=== PATIENT | female | born 1940 | race Caucasian/White ===

== ENCOUNTER 2020-05-06 11:22 | Observation (INO) | payer MEDICARE, OTHER ==
[~2020-05-06] VITALS: Ht 160 cm; Wt 50.0 kg
[~2020-05-06 11:22] MED LIST: BASAGLAR K100 UNIT/1 SC; DAILY-VITE1 EACH PO; ENAL20 PO; Enalapril Malea20 MG PO; GLYB5 PO; Glyburide5 MG PO; HYDCHL25 PO; INSULANI SC; LEVSOD100 PO; LEVSOD75 PO; LOVAZA; METF500C PO; METFORMIN HCL1000 M6 PO; OMEG1CAP30 PO; OMEP20ER PO; SPIHYD PO; Zofran Odt4 MG SL
[2020-05-06 12:31] LABS: BASOPHILS ABSOLUTE AUTO 0.02 K/mm3 (0.00-0.23); BASOPHILS PERCENT AUTO 0 % (0-2); EOSINOPHILS ABSOLUTE AUTO 0.09 K/mm3 (0.00-0.68); EOSINOPHILS PERCENT AUTO 1 % (0-6); Hematocrit 39.1 % (33.0-51.0); IMMATURE GRAN ABSOLUTE AUTO 0.02 K/mm3 (0.00-0.10); IMMATURE GRAN PERCENT AUTO 0 % (0-1); LYMPHOCYTES ABSOLUTE AUTO 1.87 K/mm3 (0.84-5.20); LYMPHOCYTES PERCENT AUTO 28 % (21-46); MONOCYTES ABSOLUTE AUTO 0.56 K/mm3 (0.16-1.47); MONOCYTES PERCENT AUTO 9 % (4-13); Mean Corpuscular HGB 31.8 pg (26.0-34.0); Mean Corpuscular HGB Conc 33.2 g/dL (31.5-36.5); Mean Corpuscular Volume 96 fL (80-100); Mean Platelet Volume 12.5 fL (9.1-12.4); NEUTROPHILS ABSOLUTE AUTO 4.05 K/mm3 (1.96-9.15); NEUTROPHILS PERCENT AUTO 61 % (41-73); Platelet Count 188 K/mm3 (150-400); RDW Coefficient Variation 12.8 % (11.7-14.2); RDW Standard Deviation 44.5 fL (35.1-46.3); Red Blood Cell Count 4.09 M/mm3 (3.80-5.20); White Blood Cell Count 6.61 K/mm3 (4.00-11.30)
[2020-05-06 12:43] LABS: Alanine Aminotransfer (ALT/SGP 28 U/L (12-78); Albumin, Blood 3.7 g/dL (3.4-5.0); Albumin/Globulin Ratio 1.1 (0.8-1.8); Alk Phos 122 U/L (50-136); Anion Gap 8 mmol/L (6-16); Aspartate Aminotrans (AST/SGOT 22 U/L (12-37); Bilirubin, Total 0.4 mg/dL (0.1-1.0); Blood Urea Nitrogen 14 mg/dL (8-24); Bun/Creatinine Ratio 11.4 (12.0-20.0); CO2, Blood 25 mmol/L (21-32); Chloride, Blood 109 mmol/L (98-108); Creatinine, Blood 1.23 mg/dL (0.40-1.00); Globulin, Blood 3.4 g/dL (2.2-4.0); Glomerular Filtration Rate 45 (60-); Glucose, Blood 159 mg/dL (70-99); Potassium, Blood 3.8 mmol/L (3.5-5.5); Sodium, Blood 142 mmol/L (136-145); Total Protein, Blood 7.1 g/dL (6.4-8.2); Troponin I <0.015 ng/mL (0.000-0.040)
--- NOTE | 2020-05-06 19:14 | NUR ---
PT ARRIVED IN THE UNIT VIA STRETCHER, REPORT RECEIVED FROM BABATUNDE TERRY. PT SBA FOR TRANSFERS. PT IS ALERT AND ORIENTED BUT FORGETFUL, VITALS HRR NSR 80'S, BP SYSTOLIC 170'S, SATS ABOVE 95% ON RA, AFEBRILE. PT DENIES CHEST PAIN UPON ARRIVAL TO UNIT PT WAS GIVEN NITRO IN THE ER. TROP TRENDS NEGATIVE AT THIS TIME WILL WATCH OVER NIGHT PER DR MATHIAS, STRESS TEST AND ECHO IN AM. NPO AT MIDNIGHT FOR POSSIBLE PROCEDURE IN AM. NO ISSUES AT THIS TIME, PT IN BED RESTING CALL LIGHTS IN REACH WILL MONITOR
[2020-05-07 04:19] LABS: BASOPHILS ABSOLUTE AUTO 0.02 K/mm3 (0.00-0.23); BASOPHILS PERCENT AUTO 0 % (0-2); EOSINOPHILS ABSOLUTE AUTO 0.15 K/mm3 (0.00-0.68); EOSINOPHILS PERCENT AUTO 2 % (0-6); Hematocrit 34.6 % (33.0-51.0); Hemoglobin 11.6 g/dL (11.5-16.0); IMMATURE GRAN ABSOLUTE AUTO 0.01 K/mm3 (0.00-0.10); IMMATURE GRAN PERCENT AUTO 0 % (0-1); LYMPHOCYTES ABSOLUTE AUTO 2.63 K/mm3 (0.84-5.20); LYMPHOCYTES PERCENT AUTO 42 % (21-46); MONOCYTES ABSOLUTE AUTO 0.52 K/mm3 (0.16-1.47); MONOCYTES PERCENT AUTO 8 % (4-13); Mean Corpuscular HGB 31.6 pg (26.0-34.0); Mean Corpuscular HGB Conc 33.5 g/dL (31.5-36.5); Mean Corpuscular Volume 94 fL (80-100); Mean Platelet Volume 12.8 fL (9.1-12.4); NEUTROPHILS ABSOLUTE AUTO 2.99 K/mm3 (1.96-9.15); NEUTROPHILS PERCENT AUTO 47 % (41-73); Platelet Count 162 K/mm3 (150-400); RDW Coefficient Variation 12.8 % (11.7-14.2); Red Blood Cell Count 3.67 M/mm3 (3.80-5.20); White Blood Cell Count 6.32 K/mm3 (4.00-11.30)
[2020-05-07 04:33] LABS: Bun/Creatinine Ratio 12.7 (12.0-20.0); Calcium, Blood 9.2 mg/dL (8.5-10.1); Creatinine, Blood 1.26 mg/dL (0.40-1.00); Potassium, Blood 3.6 mmol/L (3.5-5.5)
--- NOTE | 2020-05-07 05:34 | NUR ---
SHIFT SUMMARY PT HAD A VERY QUIET UNEVENTFUL NIGHT. PT WAS ALERT AND ORIENTED AT START OF SHIFT, BY AM PT WAS CONFUSED. PT STATED SHE WAS GOING TO GO HOME AND BEGAN TO PUT HER PANTS ON. PT WAS TOLD SHE WAS GOING IN FOR A PROCEDURE THIS AM AND PT WAS SHOCKED AND UNAWARE OF ANY PROCEDURE. PT WAS ALSO UNAWARE WHY SHE WAS AT THE HOSPITAL AND FORGOT SHE WAS HAVING CHEST PAIN PREVIOUSLY. VITALS WERE STABLE. BP WAS HYPERTENSIVE UP TO 179 SYSTOLIC BUT REMAINED AROUND 150 SYSTOLIC THROUGH MOST OF THE SHIFT. HR 50-60 BPM, PT HAD A COUPLE EPISODES OF HR IN THE 40'S FOR A COUPLE SECONDS. PT STATED HAVING CHEST PAIN EARLY IN THE NIGHT AT 5 OUT OF 10, PT STATED IT QUICKLY RESIDED DOWN TO ABOUT A 3 AND PT WAS ABLE TO GET PLENTY OF SLEEP.
--- NOTE | 2020-05-07 15:34 | NUR ---
echocardiogram complete
--- NOTE | 2020-05-07 18:25 | NUR ---
NO ACUTE EVENTS THIS SHIFT, PATIENT ALERT AND ORIENTED TO SITUATION, SELF AND FAMILY. PATIENT MAKES UNRELATED STATEMENTS DURING CONVERSTATION AT TIMES, BUT AT OTHER TIMES SEEMS ORIENTED. PATIENT HYPERTENSIVE THIS SHIFT, ORDERS FOR PRN LABETALOL GIVEN, PATIENT BP IMPROVED AND NO LABETALOL GIVEN THIS SHIFT. PATIENT INDEPENDENT IN ROOM. PATIENT COMPLAINED OF CHEST PAIN AFTER FIRST PART OF STRESS TEST TODAY, RESOLVED WITHOUT INTERVENTION. PLAN IS TO COMPLETE STRESS TEST TOMORROW, NPO AFTER MIDNIGHT.
--- NOTE | 2020-05-07 20:32 | NUR ---
ASSUMED CARE FROM DAY SHIFT RN PT WAS AWAKE AND INDEPENDENTLY IN THE BATHROOM AT THE TIME OF CHANGE OF SHIFT. PT RETURNED TO BED AND PARTICIPATED IN BEDSIDE REPORT. PT DENIED CHEST PAIN, PRESSURE AND DISCOMFORT, PT DENIED SOB. VS STABLE, PT ON RA. PT WORKED WITH RN TO STRAIGHTEN OUT LINENS AND PT WAS TUCKED INTO BED WITH A WARM BLANKET AFTER ASSESSMENT AND VITALS. PT TO BE NPO AT MIDNIGHT FOR 1 DAY STRESS TEST TOMORROW
--- NOTE | 2020-05-08 04:16 | NUR ---
SHIFT SUMMARY PT HAS BEEN SLEEPING ON AND OFF THROUGHOUT THE NIGHT. PT HAS WOKEN UP TWICE TO USE THE BATHROOM BUT SEEMED CONFUSED PER HER LOCATION STATING SHE IS AT HOME. PT REMAINED PLEASANT AND DID NOT GET ANXIOUS WHEN STAFF REORIENTED HER TO THE HOSPITAL ROOM. PT IS STILL ABLE TO TRANSFER INDEPENDENTLY BUT HAS SOME INTERMITTEN CONFUSION; THIS DID NOT BEGIN UNTIL AFTER 10PM, PRIOR TO THAT THE PT WAS A&O X4. A BED ALARM HAS BEEN USED DURING THE NIGHT FOR PATIENT SAFETY. VS STABLE, PT ON RA AND IS NOW RESTING IN BED
--- NOTE | 2020-05-08 17:13 | NUR ---
NO ACUTE EVENTS THIS SHIFT, VSS. PATIENT AMBULATING INDEPENDENTLY IN ROOM, NO DIZZINESS/WEAKNESS NOTED. PATIENT COMPLETED STRESS TEST, AFTER LUNCH COMPLAINED OF MIDLINE CHEST DISCOMFORT, WORSE ON DEEP BREATH. PRILOSEC GIVEN, RELIEF NOTED.
[2020-05-08] MEDS ORDERED: ASPI81CH PO (17:22)
--- NOTE | 2020-05-08 17:53 | NUR ---
PATIENT AND PATIENT'S DAUGHTER PROVIDED DISCHARGE INFOR REGARDING FOLLOW UP PLANS, REASONS TO RETURN TO THE HOSPITAL, AND MEDICATION INFORMATION. PATIENT AND PATIENT'S DAUGHTER VERBALIZED UNDERSTANDING. NO SIGNS OF ACUTE DISTRESS, PATIENT AMBULATED OUT WITH STAFF ACCOMPANYING TO PERSONAL VEHICLE.
== END 2020-05-08 17:46 | disposition home or self-care (01) ==
LOC: ER 11:22 → ERHOLD 11:23 → PCU 17:37
PROVIDERS: Family Medicine; Physician Assistant; ADMIT Hospitalist
DX: R07.89 Other chest pain (principal); R00.1 Bradycardia, unspecified; I35.0 Nonrheumatic aortic (valve) stenosis; I10 Essential (primary) hypertension; E03.9 Hypothyroidism, unspecified; E11.9 Type 2 diabetes mellitus without complications; Z79.4 Long term (current) use of insulin; Z88.8 Allergy status to other drugs, medicaments and biological substances
CPT/HCPCS: 36415; 71046; 78452; 80048; 80053; 82947; 83690; 84443; 84484; 85025; 93005; 93010; 93017; 93306; 99285-25; A9270; A9500; G0378; J0706; J1650; J2785

== ENCOUNTER → 2022-03-04 | Outpatient (CLI) | payer MEDICARE, OTHER ==
[~2022-03-04] MED LIST changes: +ASPI81CH PO
== END | disposition home or self-care (01) ==
LOC: LAB SHORT 14:43
DX: M79.662 Pain in left lower leg (principal)
CPT/HCPCS: 85379

== ENCOUNTER → 2022-07-21 | Outpatient (CLI) | payer MEDICARE, OTHER ==
[~2022-07-21] MED LIST changes: +Celexa20 MG PO; +EUTHYROX88 MCG PO; -LEVSOD75 PO; +PANT40 PO; +QUETIAPINE FUM10011 PO
[2022-07-21 18:25] LABS: BASOPHILS ABSOLUTE AUTO 0.02 K/mm3 (0.00-0.23); BASOPHILS PERCENT AUTO 1 % (0-2); EOSINOPHILS PERCENT AUTO 2 % (0-6); Hematocrit 26.4 % (33.0-51.0); Hemoglobin 8.3 g/dL (11.5-16.0); IMMATURE GRAN ABSOLUTE AUTO 0.01 K/mm3 (0.00-0.10); IMMATURE GRAN PERCENT AUTO 0 % (0-1); LYMPHOCYTES ABSOLUTE AUTO 1.41 K/mm3 (0.84-5.20); LYMPHOCYTES PERCENT AUTO 33 % (21-46); MONOCYTES ABSOLUTE AUTO 0.41 K/mm3 (0.16-1.47); MONOCYTES PERCENT AUTO 10 % (4-13); Mean Corpuscular HGB 28.6 pg (26.0-34.0); Mean Corpuscular HGB Conc 31.4 g/dL (31.5-36.5); Mean Corpuscular Volume 91 fL (80-100); NEUTROPHILS ABSOLUTE AUTO 2.35 K/mm3 (1.96-9.15); NEUTROPHILS PERCENT AUTO 55 % (41-73); Platelet Count 207 K/mm3 (150-400); RDW Coefficient Variation 13.7 % (11.7-14.2); RDW Standard Deviation 46.1 fL (35.1-46.3)
[2022-07-21 18:43] LABS: Alanine Aminotransfer (ALT/SGP 21 U/L (12-78); Albumin, Blood 3.4 g/dL (3.4-5.0); Albumin/Globulin Ratio 1.2 (0.8-1.8); Alk Phos 106 U/L (50-136); Anion Gap 2 mmol/L (6-16); Aspartate Aminotrans (AST/SGOT 14 U/L (12-37); Bilirubin, Total 0.3 mg/dL (0.1-1.0); Blood Urea Nitrogen 23 mg/dL (8-24); CHOL/HDL RATIO 3.6; CO2, Blood 23 mmol/L (21-32); Calcium, Blood 9.1 mg/dL (8.5-10.1); Chloride, Blood 113 mmol/L (98-108); Cholesterol 156 mg/dL (50-200); Free Thyroxine 1.05 ng/dL (0.70-1.60); Globulin, Blood 2.9 g/dL (2.2-4.0); Glucose, Blood 132 mg/dL (70-99); HDL Cholesterol 43 mg/dL (>39); LDL/HDL RATIO 2.1; Low Density Lipoprotein Chol 90 mg/dL (0-110); Potassium, Blood 4.5 mmol/L (3.5-5.5); Sodium, Blood 138 mmol/L (136-145); Total Protein, Blood 6.3 g/dL (6.4-8.2); Triglycerides 115 mg/dL (30-160); Very Low Density Lipoprot Chol 23 mg/dL (6-32)
[2022-07-21 18:49] LABS: Bun/Creatinine Ratio 14.2 (12.0-20.0); Creatinine, Blood 1.62 mg/dL (0.40-1.00); Glomerular Filtration Rate 32 (60-); Thyroid Stimulating Hormone 0.351 uIU/mL (0.360-4.800)
== END | disposition home or self-care (01) ==
LOC: LAB SHORT 11:45 → LAB 11:45
PROVIDERS: Family Medicine
DX: E03.8 Other specified hypothyroidism (principal); I10 Essential (primary) hypertension; E11.9 Type 2 diabetes mellitus without complications
CPT/HCPCS: 80053; 80061; 83036; 84439; 84443; 85025

== ENCOUNTER 2022-10-02 22:32 | Observation (INO) | payer MEDICARE, OTHER ==
[~2022-10-02] VITALS: Ht 160 cm; Wt 66.6 kg
[2022-10-02 23:16] LABS: BASOPHILS ABSOLUTE AUTO 0.01 K/mm3 (0.00-0.23); BASOPHILS PERCENT AUTO 0 % (0-2); EOSINOPHILS ABSOLUTE AUTO 0.15 K/mm3 (0.00-0.68); EOSINOPHILS PERCENT AUTO 3 % (0-6); Hematocrit 22.9 % (33.0-51.0); IMMATURE GRAN ABSOLUTE AUTO 0.02 K/mm3 (0.00-0.10); IMMATURE GRAN PERCENT AUTO 0 % (0-1); LYMPHOCYTES ABSOLUTE AUTO 1.61 K/mm3 (0.84-5.20); LYMPHOCYTES PERCENT AUTO 27 % (21-46); MONOCYTES ABSOLUTE AUTO 0.57 K/mm3 (0.16-1.47); MONOCYTES PERCENT AUTO 9 % (4-13); Mean Corpuscular HGB 25.4 pg (26.0-34.0); Mean Corpuscular HGB Conc 30.6 g/dL (31.5-36.5); Mean Corpuscular Volume 83 fL (80-100); NEUTROPHILS ABSOLUTE AUTO 3.72 K/mm3 (1.96-9.15); NEUTROPHILS PERCENT AUTO 61 % (41-73); Platelet Count 160 K/mm3 (150-400); RDW Coefficient Variation 14.6 % (11.7-14.2); RDW Standard Deviation 44.1 fL (35.1-46.3); Red Blood Cell Count 2.76 M/mm3 (3.80-5.20); White Blood Cell Count 6.08 K/mm3 (4.00-11.30)
[2022-10-02 23:35] LABS: Albumin, Blood 3.2 g/dL (3.4-5.0); Albumin/Globulin Ratio 1.2 (0.8-1.8); Bilirubin, Total 0.1 mg/dL (0.1-1.0); Bun/Creatinine Ratio 16.5 (12.0-20.0); Calcium, Blood 8.7 mg/dL (8.5-10.1); Creatinine, Blood 1.39 mg/dL (0.40-1.00); Globulin, Blood 2.7 g/dL (2.2-4.0); Potassium, Blood 4.4 mmol/L (3.5-5.5); Total Protein, Blood 5.9 g/dL (6.4-8.2)
[2022-10-03 02:24] LABS: International Normalized Ratio 1.04; Prothrombin Time Results 10.9 Sec (9.7-11.5)
[2022-10-03 06:35] VITALS: BP 166/65
[2022-10-03 06:59] LABS: BASOPHILS ABSOLUTE AUTO 0.02 K/mm3 (0.00-0.23); BASOPHILS PERCENT AUTO 0 % (0-2); EOSINOPHILS ABSOLUTE AUTO 0.15 K/mm3 (0.00-0.68); EOSINOPHILS PERCENT AUTO 3 % (0-6); Hematocrit 23.3 % (33.0-51.0); Hemoglobin 7.4 g/dL (11.5-16.0); IMMATURE GRAN ABSOLUTE AUTO 0.02 K/mm3 (0.00-0.10); IMMATURE GRAN PERCENT AUTO 0 % (0-1); LYMPHOCYTES ABSOLUTE AUTO 1.91 K/mm3 (0.84-5.20); LYMPHOCYTES PERCENT AUTO 40 % (21-46); MONOCYTES ABSOLUTE AUTO 0.44 K/mm3 (0.16-1.47); MONOCYTES PERCENT AUTO 9 % (4-13); Mean Corpuscular HGB 25.5 pg (26.0-34.0); Mean Corpuscular HGB Conc 31.8 g/dL (31.5-36.5); Mean Corpuscular Volume 80 fL (80-100); NEUTROPHILS ABSOLUTE AUTO 2.22 K/mm3 (1.96-9.15); NEUTROPHILS PERCENT AUTO 47 % (41-73); RDW Coefficient Variation 14.5 % (11.7-14.2); RDW Standard Deviation 42.7 fL (35.1-46.3); White Blood Cell Count 4.76 K/mm3 (4.00-11.30)
[2022-10-03] MEDS ORDERED: Acetaminophen650 M1 PO (07:12)
[2022-10-03] MEDS ORDERED: BISA10S PR (07:14)
[2022-10-03] MEDS ORDERED: HYDHCL25 PO (07:15)
[2022-10-03] MEDS ORDERED: MELO7.5 PO (07:16)
[2022-10-03] MEDS ORDERED: LOPE2C PO (07:16)
[2022-10-03] MEDS ORDERED: DULCOLAX400 MG/5 M (07:17)
[2022-10-03] MEDS ORDERED: ONDA4ODT MM (07:18)
[2022-10-03 07:30] LABS: Mean Platelet Volume 12.9 fL (9.1-12.4); Platelet Count 152 K/mm3 (150-400)
[2022-10-03 07:34] VITALS: BP 161/62
--- NOTE | 2022-10-03 10:35 | NUR ---
RN NOTE MS CHERRY IS ORIENTATED TO HER NAME. SHE TOLD ME IT IS THE 1900S. SHE SAID SHE WAS BORN IN [place], BUT IS MOSTLY FORGETFUL. SHE IS CALM AND HAS BEEN ABLE TO BE REDIRECTED. SHE WALKED INTO BR AND WAS CONTINENT THIS AM, GAIT BELT AND S/B ASSIST WITH SOME DIRECTION, MOSTLY STEADY WALKING. SHE SAT UP IN THE RECLINER FOR BREAKFAST. NOW IN BED FOR ECHO. BED AND CHAIR ALARMS USED. ON TELEMETRY, NO CALLS FROM [employer]. SHE HAS DENIED ANY CHEST PAIN OR PRESSURE. NO RESP COMPAINTS ON RA. SHE WAS EDUCATED RE IGNITION SOURCES AND RISK OF INJURY WHEN OXYGEN IN USE. PT DENIES SMOKING. SHE IS FORGETFUL AND UNABLE TO SHOW UNDERSTANDING. RISK ASSESSMENT CONTINUES ON HOURLY ROUNDS.
[2022-10-03 10:48] LABS: Albumin, Blood 3.1 g/dL (3.4-5.0); Albumin/Globulin Ratio 1.1 (0.8-1.8); Bilirubin, Total 0.3 mg/dL (0.1-1.0); Bun/Creatinine Ratio 15.7 (12.0-20.0); Creatinine, Blood 1.34 mg/dL (0.40-1.00); Globulin, Blood 2.9 g/dL (2.2-4.0); Potassium, Blood 4.4 mmol/L (3.5-5.5)
[2022-10-03 15:14] VITALS: BP 154/58
--- NOTE | 2022-10-03 16:31 | NUR ---
SHIFT SUMMARY MS CHERRY HAS BEEN PLEASANTLY CONFUSED TODAY, FORGETFUL AND NEEDING REDIRECTION. SHE HAS WALKED IN THE HALLS WITH PHYSICAL THERAPY, WALKED INTO THE BATHROOM SEVERAL TIMES, BEEN CONTINENT OF URINE. ATE AND DRANK WELL. DENIED ANY CHEST PAIN OR DISCOMFORT. SR ON TELE, NO CALLS FROM SCOUT OTHER THAN WHEN PT REMOVED LEADS A FEW TIMES. SHE HAS NOT USED CALL LIGHT AND HAS VERY POOR SHORT TERM MEMORY. BED AND CHAIR ALARMS USED, PT GETS UP WITHOUT CALLING. SHE RESIDES AT [facility] IN [place]. BED LOW, CALL LIGHT IN REACH.
[2022-10-03 20:44] VITALS: BP 162/67
--- NOTE | 2022-10-04 04:38 | NUR ---
SHIFT SUMMARY PT IS A&O TO SELF, UP WITH ONE TO THE BR WITH FWW, RA, VSS, NO ACUTE OVERNIGHT EVENTS, FIRE SAFETY MITIGATION EDUCATION PROVIDED CONTINUE POC
[2022-10-04 07:11] LABS: IRON BIND.CAP.(TIBC) 385 ug/dL (250-450); IRON SATURATION 3 % (15-55); IRON, SERUM 13 ug/dL (27-139); UIBC 372 ug/dL (118-369)
[2022-10-04 07:11] LABS: IRON BIND.CAP.(TIBC) 426 ug/dL (250-450); IRON SATURATION 6 % (15-55); IRON, SERUM 26 ug/dL (27-139); UIBC 400 ug/dL (118-369)
[2022-10-04 07:41] VITALS: BP 146/59
[2022-10-04 07:41] LABS: BASOPHILS ABSOLUTE AUTO 0.02 K/mm3 (0.00-0.23); BASOPHILS PERCENT AUTO 0 % (0-2); EOSINOPHILS ABSOLUTE AUTO 0.13 K/mm3 (0.00-0.68); EOSINOPHILS PERCENT AUTO 3 % (0-6); Hematocrit 23.9 % (33.0-51.0); Hemoglobin 7.5 g/dL (11.5-16.0); IMMATURE GRAN ABSOLUTE AUTO 0.01 K/mm3 (0.00-0.10); IMMATURE GRAN PERCENT AUTO 0 % (0-1); LYMPHOCYTES ABSOLUTE AUTO 1.38 K/mm3 (0.84-5.20); LYMPHOCYTES PERCENT AUTO 31 % (21-46); MONOCYTES ABSOLUTE AUTO 0.44 K/mm3 (0.16-1.47); MONOCYTES PERCENT AUTO 10 % (4-13); Mean Corpuscular HGB 25.3 pg (26.0-34.0); Mean Corpuscular HGB Conc 31.4 g/dL (31.5-36.5); Mean Corpuscular Volume 81 fL (80-100); Mean Platelet Volume 12.1 fL (9.1-12.4); NEUTROPHILS ABSOLUTE AUTO 2.51 K/mm3 (1.96-9.15); NEUTROPHILS PERCENT AUTO 56 % (41-73); Platelet Count 187 K/mm3 (150-400); RDW Coefficient Variation 14.5 % (11.7-14.2); RDW Standard Deviation 42.5 fL (35.1-46.3); Red Blood Cell Count 2.97 M/mm3 (3.80-5.20); White Blood Cell Count 4.49 K/mm3 (4.00-11.30)
[2022-10-04 08:11] LABS: FERRITIN 5 ng/mL (15-150)
[2022-10-04 08:11] LABS: FERRITIN 5 ng/mL (15-150)
[2022-10-04 08:13] LABS: Bun/Creatinine Ratio 14.3 (12.0-20.0); Calcium, Blood 9.1 mg/dL (8.5-10.1); Creatinine, Blood 1.4 mg/dL (0.40-1.00); Potassium, Blood 4.5 mmol/L (3.5-5.5)
--- NOTE | 2022-10-04 09:37 | NUR ---
LOST IV ACCESS TO RIGHT AC, SALINE LEAKING. DR. MCMANUS AT BEDSIDE, VERBAL CONSULT - OK FOR NO IV ACCESS ORDER PER DR. MCMANUS. NO CONTINUED NEED.
--- NOTE | 2022-10-04 12:45 | NUR ---
PHONE CALL TO DR. QURESHI, PT CONTINUES TO REMOVE TELEMETRY STICKERS INDEPENDENTLY. RN PLACED PHONE CALL TO DR. QURESHI, PT DENIES CHEST PAIN AND ASSOCIATED SYMPTOMS OF ACS. VERBAL CONSULT WITH DR. MCMANUS WHILE ROUNDING, DISCHARGE PLANNING IS PENDING FOR RETURN TO [facility] TOMORROW. DR. QURESHI OK TO DISCONTINUE TELE. RN CALLED TELE LESA JAMES AND UPDATED ORDERS.
--- NOTE | 2022-10-04 15:12 | NUR ---
DISCHARGE RADIOCOMMUNICATIONS TECHNICIAN CONSULTED WITH DR. QURESHI RE: DISCHARGE PLANNING. RN SPOKE TO [facility] NURSE YONG HOPPER, AND THEY ARE UNABLE TO ACCEPT PT BACK ON THE WEEKEND. RN SPOKE TO PT'S GUARDIAN KATARZYNA SHANNON. FAMILY STATES THEY ARE NOT ABLE TO TAKE PT BACK THIS EVENING BECAUSE THEY ARE CURRENTLY IN THEIR MOBILE HOME WITHOUT A SAFE PLACE FOR VALENCIA TO SLEEP, AND 3 HIGH STEPS THAT ARE UNSAFE FOR VALENCIA TO NAVIGATE. DR. QURESHI VERB UNDERSTANDING.
[2022-10-04 16:11] VITALS: BP 152/53
--- NOTE | 2022-10-04 16:22 | NUR ---
SHIFT SUMMARY VALENCIA HAS DISCHARGE ORDERS AWAITING COMPLETION. PT'S DISCHARGE PACKET IS IN HER CHART. VSS. NO ACUTE CHANGES. ROOM AIR. INCONTINENT/CONTINENT IN ATTENDS. SPENT THE SHIFT NAPPING IN HER RECLINER IN THE HALLWAY. TELEMETRY DISCONTINUED. AWAITING DISCHARGE TOMORROW, HER GUARDIAN KATARZYNA SHANNON WILL DRIVE HER TO [facility] IN [place].
[2022-10-04 17:16] VITALS: BP 164/74
[2022-10-04 17:27] VITALS: BP 164/74
[2022-10-04 19:24] VITALS: BP 167/55
--- NOTE | 2022-10-05 03:10 | NUR ---
FORWARD AIR CONTROLLER/AIR OFFICER SUMMARY BP ELEVATED, OTHERWISE VSS. WAS UP IN RECLINER IN THE HALLWAY AT SHIFT COMMENCE FOR BEHAVIORAL ISSUES. AFFECT CHEERFUL AND TALKATIVE. WAS ASSISTED TO BATHROOM AND THEN TO BED AT HS. HAS BEEN RESTING QUIETLY WITH FEW INTERUPTIONS. NO C/O CHEST PAINS. CBG AT HS WAS 142. CALL LIGHT IN REACH. SCHEDULED TO BE DISCHARGED IN THE AM. WILL CONTINUE TO MONITOR
[2022-10-05 03:20] VITALS: BP 144/57
--- NOTE | 2022-10-05 04:38 | NUR ---
NURSE NOTE RECEIVED FIRE IGNITION TEACHING RE NOT TO SMOKE WHILE ON O2 AND NOT TO SMOKE IN GENERAL EARLIER IN THE SHIFT
--- NOTE | 2022-10-05 11:19 | NUR ---
Upon receiving a referal or spiritual care, I visied he patient. She is onfused about most things but is very pleasant. She is unsure of family names and places but knows that she has a dtr. I help her identify her dtr's name. Patient knows he she has a strong Chritian based rekha and that she prays often but can't come up with the names of any churches she has attended. I provide therapeutic listening, a calming presence and prayer. Patient showed signs of being encouraged in her rekha. I will continue to remain avaiable to patient and family.
--- NOTE | 2022-10-05 11:41 | NUR ---
DISCHARGE SUMMARY PATIENT IS ALERT AND ORIENTED TO SELF AND LOCATION ONLY. PATIENT HAS NOT HAD ANY ACUTE EVENTS THIS SHIFT. PATIENT IS BEING DISCHARGED TO [facility]. PATIENTS DAUGHTER ARRIVED TO TRANSPORT PATIENT TO FACILITY. PATIENTS FAMILY AND FACILITY WERE UPDATED ON PATIENTS DISCHARGE INSTRUCTIONS. PAVITHRA LANGFORD WHEELED PATIENT OUT TO PATIENTS DAUGHTERS CAR.
== END 2022-10-05 11:45 | disposition home or self-care (01) ==
LOC: ER 22:32 → MEDS 22:33 → ENPENDDIS 10-04 15:26 → MEDS 10-05 11:45
PROVIDERS: Family Medicine; Student in an Organized Health Care Education/Training Program; ADMIT Internal Medicine
DX: R07.89 Other chest pain (principal); R79.0 Abnormal level of blood mineral; I13.0 Hypertensive heart and chronic kidney disease with heart failure and stage 1 through stage 4 chronic kidney disease, or unspecified chronic kidney disease; E11.22 Type 2 diabetes mellitus with diabetic chronic kidney disease; N18.30 Chronic kidney disease, stage 3 unspecified; I50.30 Unspecified diastolic (congestive) heart failure; D64.9 Anemia, unspecified; E03.9 Hypothyroidism, unspecified; I35.0 Nonrheumatic aortic (valve) stenosis; Z66 Do not resuscitate
CPT/HCPCS: 36415; 71045; 80048; 80053; 82607; 82728; 82746; 82947; 83540; 83550; 83880; 84443; 84484; 85025; 85610; 86850; 86900; 86901; 93005; 93010; 93306; 96372; 97116; 97161; 99285-25; A9270; G0378; J1650

== ENCOUNTER 2023-01-14 10:18 | Emergency (ER) | payer MEDICARE, OTHER ==
[~2023-01-14] VITALS: Ht 172.7 cm; Wt 79.4 kg
[~2023-01-14 10:18] MED LIST changes: +Acetaminophen650 M1 PO; +BISA10S PR; +DULCOLAX400 MG/5 M; +HYDHCL25 PO; +LOPE2C PO; +MELO7.5 PO; +ONDA4ODT MM
[2023-01-14 10:41] LABS: BASOPHILS ABSOLUTE AUTO 0.02 K/mm3 (0.00-0.23); BASOPHILS PERCENT AUTO 0 % (0-2); EOSINOPHILS PERCENT AUTO 2 % (0-6); Hematocrit 20.7 % (33.0-51.0); IMMATURE GRAN ABSOLUTE AUTO 0.03 K/mm3 (0.00-0.10); IMMATURE GRAN PERCENT AUTO 1 % (0-1); LYMPHOCYTES ABSOLUTE AUTO 1.59 K/mm3 (0.84-5.20); LYMPHOCYTES PERCENT AUTO 27 % (21-46); MONOCYTES ABSOLUTE AUTO 0.48 K/mm3 (0.16-1.47); MONOCYTES PERCENT AUTO 8 % (4-13); Mean Corpuscular HGB 21.7 pg (26.0-34.0); Mean Corpuscular Volume 75 fL (80-100); Mean Platelet Volume 11.8 fL (9.1-12.4); NEUTROPHILS ABSOLUTE AUTO 3.63 K/mm3 (1.96-9.15); NEUTROPHILS PERCENT AUTO 62 % (41-73); Platelet Count 189 K/mm3 (150-400); RDW Coefficient Variation 17.9 % (11.7-14.2); RDW Standard Deviation 48.3 fL (35.1-46.3); Red Blood Cell Count 2.76 M/mm3 (3.80-5.20); White Blood Cell Count 5.85 K/mm3 (4.00-11.30)
[2023-01-14 11:04] LABS: Magnesium, Blood 2.1 mg/dL (1.6-2.4)
[2023-01-14 11:05] LABS: Albumin, Blood 3.2 g/dL (3.4-5.0); Albumin/Globulin Ratio 1.1 (0.8-1.8); Bilirubin, Total 0.2 mg/dL (0.1-1.0); Bun/Creatinine Ratio 10.8 (12.0-20.0); Calcium, Blood 8.5 mg/dL (8.5-10.1); Creatinine, Blood 1.57 mg/dL (0.40-1.00); Globulin, Blood 2.9 g/dL (2.2-4.0); Potassium, Blood 4.5 mmol/L (3.5-5.5); Total Protein, Blood 6.1 g/dL (6.4-8.2)
[2023-01-14 16:00] VITALS: BP 170/56
== END 2023-01-14 19:20 | disposition home or self-care (01) ==
LOC: ER 10:18
PROVIDERS: Student in an Organized Health Care Education/Training Program
DX: D64.9 Anemia, unspecified (principal); Z88.8 Allergy status to other drugs, medicaments and biological substances; Z88.6 Allergy status to analgesic agent; Z79.899 Other long term (current) drug therapy; E11.9 Type 2 diabetes mellitus without complications; I10 Essential (primary) hypertension; E03.9 Hypothyroidism, unspecified
CPT/HCPCS: 36430; 71046; 80053; 82947; 83735; 84484; 85025; 86850; 86900; 86901; 86923; 93005; 93010; 96360; 96361; 99285-25; J7030; P9016

== ENCOUNTER → 2023-01-25 | Outpatient (CLI) | payer MEDICARE, OTHER ==
[2023-01-25 14:29] LABS: BASOPHILS ABSOLUTE AUTO 0.03 K/mm3 (0.00-0.23); BASOPHILS PERCENT AUTO 1 % (0-2); EOSINOPHILS ABSOLUTE AUTO 0.11 K/mm3 (0.00-0.68); EOSINOPHILS PERCENT AUTO 2 % (0-6); Hematocrit 29.1 % (33.0-51.0); Hemoglobin 8.8 g/dL (11.5-16.0); IMMATURE GRAN ABSOLUTE AUTO 0.02 K/mm3 (0.00-0.10); IMMATURE GRAN PERCENT AUTO 0 % (0-1); LYMPHOCYTES ABSOLUTE AUTO 1.72 K/mm3 (0.84-5.20); LYMPHOCYTES PERCENT AUTO 30 % (21-46); MONOCYTES ABSOLUTE AUTO 0.48 K/mm3 (0.16-1.47); MONOCYTES PERCENT AUTO 8 % (4-13); Mean Corpuscular HGB 24.2 pg (26.0-34.0); Mean Corpuscular HGB Conc 30.2 g/dL (31.5-36.5); Mean Corpuscular Volume 80 fL (80-100); NEUTROPHILS ABSOLUTE AUTO 3.37 K/mm3 (1.96-9.15); NEUTROPHILS PERCENT AUTO 59 % (41-73); Platelet Count 150 K/mm3 (150-400); RDW Coefficient Variation 20.6 % (11.7-14.2); RDW Standard Deviation 58.1 fL (35.1-46.3); Red Blood Cell Count 3.63 M/mm3 (3.80-5.20); White Blood Cell Count 5.73 K/mm3 (4.00-11.30)
== END ==
LOC: LAB 11:14 → LAB SHORT 11:14
PROVIDERS: Family Medicine
DX: D50.9 Iron deficiency anemia, unspecified (principal)
CPT/HCPCS: 82728; 83540; 83550; 85025

== ENCOUNTER → 2023-12-23 | Outpatient (CLI) | payer MEDICARE, OTHER ==
[2023-12-23 17:46] LABS: Source, Urine Clean Catch
[2023-12-23 19:01] LABS: Appearance, Urine Clear (Clear); Bilirubin, Urine Neg (Neg); Blood, Urine Neg (Neg); Color, Urine Yellow (P-Yellow); Glucose Qualitative, Urine 2+ (Neg); Ketones, Urine Neg (Neg); Leukocyte Esterase, Urine 1+ (Neg); Nitrite, Urine Pos (Neg); Protein, Urine Neg (Neg); Urobilinogen, Urine NORM (Normal)
[2023-12-23 19:50] LABS: Bacteria Mod /hpf; Red Blood Cells, Urine 0-2 /hpf (0-2); Squamous Epithelial Cells Rare /hpf (Few)
== END ==
LOC: LAB SHORT 17:44 → LAB 17:44
PROVIDERS: Family Medicine
DX: N39.0 Urinary tract infection, site not specified (principal)
CPT/HCPCS: 81001; 87077; 87086; 87186

== ENCOUNTER 2024-02-11 12:30 | Emergency (ER) | payer MEDICARE, OTHER ==
[~2024-02-11] VITALS: Ht 167.6 cm; Wt 59.0 kg
[2024-02-11 15:14] LABS: Source, Urine Clean Catch
[2024-02-11 15:17] LABS: Appearance, Urine Clear (Clear); Bilirubin, Urine Neg (Neg); Blood, Urine 1+ (Neg); Color, Urine Yellow (P-Yellow); Glucose Qualitative, Urine Neg (Neg); Ketones, Urine Neg (Neg); Leukocyte Esterase, Urine 2+ (Neg); Nitrite, Urine Neg (Neg); Protein, Urine 2+ (Neg); Specific Gravity, Urine 1.015 (1.003-1.022); Urobilinogen, Urine NORM (Normal)
[2024-02-11 15:24] LABS: White Blood Cells, Urine 50-100 /hpf (0-5)
[2024-02-11 15:25] LABS: Bacteria Many /hpf; Squamous Epithelial Cells Few /hpf (Few)
[2024-02-11] MEDS ORDERED: Cephalexin Monohydrate 250 MG/5 ML UD BTL PO ONE (15:35)
[2024-02-11 15:36] LABS: U Amphetamine Screen Not Detected; U Barbituate Screen Not Detected; U Benzodiazapine Screen Not Detected; U Buprenorphine Screen Not Detected; U Cannabinoids Screen Not Detected; U Cocaine Screen Not Detected; U Methadone Screen Not Detected; U Methamphetamine Screen Not Detected; U Opiates Screen Not Detected; U Oxycodone Screen Not Detected; U Phencyclidine Screen Not Detected
[2024-02-11] MEDS ORDERED: CEPH500 PO (16:00)
== END 2024-02-11 16:12 | disposition home or self-care (01) ==
LOC: ER 12:30
PROVIDERS: Student in an Organized Health Care Education/Training Program
DX: N39.0 Urinary tract infection, site not specified (principal); F03.90 Unspecified dementia, unspecified severity, without behavioral disturbance, psychotic disturbance, mood disturbance, and anxiety; I50.30 Unspecified diastolic (congestive) heart failure; E78.00 Pure hypercholesterolemia, unspecified; E03.9 Hypothyroidism, unspecified; I12.9 Hypertensive chronic kidney disease with stage 1 through stage 4 chronic kidney disease, or unspecified chronic kidney disease; E11.22 Type 2 diabetes mellitus with diabetic chronic kidney disease; N18.9 Chronic kidney disease, unspecified; Z79.899 Other long term (current) drug therapy; Z88.6 Allergy status to analgesic agent; Z88.8 Allergy status to other drugs, medicaments and biological substances
CPT/HCPCS: 51701; 70450; 81001; 82947; 87077; 87086; 87186; 99285-25; A9270

== ENCOUNTER → 2024-06-22 | Outpatient (CLI) | payer MEDICARE, OTHER ==
[~2024-06-22] MED LIST changes: +CEPH500 PO
[2024-06-22 16:46] LABS: Appearance, Urine Hazy (Clear); Bilirubin, Urine Neg (Neg); Blood, Urine 1+ (Neg); Glucose Qualitative, Urine Neg (Neg); Ketones, Urine Neg (Neg); Leukocyte Esterase, Urine 3+ (Neg); Nitrite, Urine Neg (Neg); Protein, Urine 2+ (Neg); Specific Gravity, Urine 1.015 (1.003-1.022); Urobilinogen, Urine NORM (Normal)
[2024-06-22 17:01] LABS: Bacteria Many /hpf; Color, Urine Pale Yellow (P-Yellow); Mucus Light (0-Heavy); Red Blood Cells, Urine Not Seen /hpf (0-2); Squamous Epithelial Cells Few /hpf (Few); White Blood Cells, Urine 50-100 /hpf (0-5)
== END ==
LOC: LAB 14:52 → LAB SHORT 14:52
PROVIDERS: Family Medicine
DX: N39.0 Urinary tract infection, site not specified (principal)
CPT/HCPCS: 81001; 87077; 87086; 87186

== ENCOUNTER 2024-06-25 13:55 | Emergency (ER) | payer MEDICARE, OTHER ==
[~2024-06-25] VITALS: Ht 162.6 cm; Wt 72.6 kg
[2024-06-25] MEDS ORDERED: Haloperidol Lactate Inj. 5 MG/ML Injection IV ONE (14:20)
[2024-06-25] MEDS ORDERED: Metoprolol Tartrate 1 MG/ML 5 ML VIAL IV PRN (14:25)
[2024-06-25 14:28] LABS: BASOPHILS ABSOLUTE AUTO 0.04 K/mm3 (0.00-0.23); BASOPHILS PERCENT AUTO 0 % (0-2); EOSINOPHILS ABSOLUTE AUTO 0.15 K/mm3 (0.00-0.68); EOSINOPHILS PERCENT AUTO 2 % (0-6); Hematocrit 35.8 % (33.0-51.0); Hemoglobin 12.5 g/dL (11.5-16.0); IMMATURE GRAN ABSOLUTE AUTO 0.03 K/mm3 (0.00-0.10); IMMATURE GRAN PERCENT AUTO 0 % (0-1); LYMPHOCYTES ABSOLUTE AUTO 2.32 K/mm3 (0.84-5.20); LYMPHOCYTES PERCENT AUTO 25 % (21-46); MONOCYTES ABSOLUTE AUTO 0.77 K/mm3 (0.16-1.47); MONOCYTES PERCENT AUTO 8 % (4-13); Mean Corpuscular HGB 33.5 pg (26.0-34.0); Mean Corpuscular HGB Conc 34.9 g/dL (31.5-36.5); Mean Corpuscular Volume 96 fL (80-100); Mean Platelet Volume 10.9 fL (9.1-12.4); NEUTROPHILS ABSOLUTE AUTO 6.14 K/mm3 (1.96-9.15); NEUTROPHILS PERCENT AUTO 65 % (41-73); Platelet Count 196 K/mm3 (150-400); RDW Coefficient Variation 13.5 % (11.7-14.2); RDW Standard Deviation 47.4 fL (35.1-46.3); Red Blood Cell Count 3.73 M/mm3 (3.80-5.20); White Blood Cell Count 9.45 K/mm3 (4.00-11.30)
[2024-06-25 14:59] LABS: Albumin, Blood 3.6 g/dL (3.4-5.0); Albumin/Globulin Ratio 1.1 (0.8-1.8); Bilirubin, Total 0.3 mg/dL (0.1-1.0); Bun/Creatinine Ratio 12.4 (12.0-20.0); Calcium, Blood 9.1 mg/dL (8.5-10.1); Creatinine, Blood 1.29 mg/dL (0.40-1.00); Globulin, Blood 3.3 g/dL (2.2-4.0); Magnesium, Blood 1.7 mg/dL (1.6-2.4); Potassium, Blood 3.8 mmol/L (3.5-5.5); Thyroid Stimulating Hormone 16.9 uIU/mL (0.360-4.800); Total Protein, Blood 6.9 g/dL (6.4-8.2)
[2024-06-25 15:04] VITALS: BP 139/85
== END 2024-06-25 15:42 | disposition home or self-care (01) ==
LOC: ER 13:55
PROVIDERS: Emergency Medicine
DX: I48.91 Unspecified atrial fibrillation (principal); F03.90 Unspecified dementia, unspecified severity, without behavioral disturbance, psychotic disturbance, mood disturbance, and anxiety; E11.9 Type 2 diabetes mellitus without complications; E03.9 Hypothyroidism, unspecified; I11.0 Hypertensive heart disease with heart failure; I50.30 Unspecified diastolic (congestive) heart failure; E78.00 Pure hypercholesterolemia, unspecified; Z88.8 Allergy status to other drugs, medicaments and biological substances; Z88.6 Allergy status to analgesic agent; Z79.899 Other long term (current) drug therapy; Z79.890 Hormone replacement therapy
CPT/HCPCS: 71045; 80053; 83735; 84443; 84484; 85025; 93005; 93010; 96374; 96375; 99285-25; J1630

== ENCOUNTER → 2024-07-12 | Outpatient (CLI) | payer OTHER ==
[2024-07-12 19:00] LABS: Appearance, Urine Hazy (Clear); Bilirubin, Urine Neg (Neg); Blood, Urine 1+ (Neg); Glucose Qualitative, Urine 1+ (Neg); Ketones, Urine Neg (Neg); Leukocyte Esterase, Urine 3+ (Neg); Nitrite, Urine Neg (Neg); Protein, Urine 3+ (Neg); Specific Gravity, Urine 1.015 (1.003-1.022); Urobilinogen, Urine NORM (Normal)
[2024-07-12 20:03] LABS: Color, Urine Pale Yellow (P-Yellow); Squamous Epithelial Cells Few /hpf (Few); White Blood Cells, Urine 50-100 /hpf (0-5)
[2024-07-12 20:04] LABS: Bacteria Many /hpf
== END | disposition home or self-care (01) ==
LOC: LAB 18:21 → LAB SHORT 18:21
PROVIDERS: Nurse Practitioner Family
DX: N39.0 Urinary tract infection, site not specified (principal)
CPT/HCPCS: 81001; 87077; 87086; 87186

== ENCOUNTER 2024-11-12 12:38 | Emergency (ER) | payer OTHER ==
[~2024-11-12] VITALS: Ht 170.2 cm; Wt 72.6 kg
[2024-11-12 13:19] VITALS: BP 161/71
[2024-11-12 14:49] LABS: Source, Urine Clean Catch
[2024-11-12 15:22] LABS: Bilirubin, Urine Neg (Neg); Color, Urine Yellow (P-Yellow); Glucose Qualitative, Urine Neg (Neg); Ketones, Urine Neg (Neg); Leukocyte Esterase, Urine Neg (Neg); Protein, Urine 3+ (Neg); Specific Gravity, Urine 1.015 (1.003-1.022); Urobilinogen, Urine NORM (Normal)
[2024-11-12 15:54] LABS: Red Blood Cells, Urine 0-2 /hpf (0-2)
[2024-11-19] MEDS ORDERED: NITR100CA PO (09:45)
== END 2024-11-12 16:55 | disposition home or self-care (01) ==
LOC: ER 12:38
PROVIDERS: Student in an Organized Health Care Education/Training Program
DX: R53.1 Weakness (principal); Z66 Do not resuscitate; I11.0 Hypertensive heart disease with heart failure; I50.30 Unspecified diastolic (congestive) heart failure; E78.00 Pure hypercholesterolemia, unspecified; E11.9 Type 2 diabetes mellitus without complications; E03.9 Hypothyroidism, unspecified; F03.90 Unspecified dementia, unspecified severity, without behavioral disturbance, psychotic disturbance, mood disturbance, and anxiety; Z88.8 Allergy status to other drugs, medicaments and biological substances; Z88.6 Allergy status to analgesic agent; Z79.890 Hormone replacement therapy; Z79.899 Other long term (current) drug therapy
CPT/HCPCS: 51701; 81001; 87077; 87086; 87186; 99284

== ENCOUNTER → 2025-03-21 | Outpatient (CLI) | payer OTHER ==
[~2025-03-21] MED LIST changes: +NITR100CA PO
[2025-03-21 23:56] LABS: Source, Urine Clean Catch
[2025-03-22 00:19] LABS: Bilirubin, Urine Neg (Neg); Glucose Qualitative, Urine Neg (Neg); Ketones, Urine Neg (Neg); Leukocyte Esterase, Urine 3+ (Neg); Protein, Urine 2+ (Neg); Specific Gravity, Urine 1.020 (1.003-1.022); Urobilinogen, Urine NORM (Normal)
[2025-03-22 00:26] LABS: Color, Urine Yellow (P-Yellow)
[2025-03-22 00:27] LABS: Red Blood Cells, Urine 0-2 /hpf (0-2)
== END | disposition home or self-care (01) ==
LOC: LAB SHORT 23:53 → LAB 23:53
PROVIDERS: Nurse Practitioner Family
DX: N39.0 Urinary tract infection, site not specified (principal)
CPT/HCPCS: 81001; 87077; 87086; 87186